=== PATIENT | female | born 1990 | race Caucasian/White ===

== ENCOUNTER 2019-08-10 10:58 | Emergency (ER) | payer MEDICAID ==
[2019-08-10 11:17] VITALS: BP 142/75; PULSE 95
[2019-08-10] MEDS ORDERED: diphenhydrAMINE 25 MG Cap PO ONE (11:31)
--- NOTE | 2019-08-10 11:37 | EDM.PDOC ---
ED HPI GENERAL MEDICAL PROBLEM - General Chief Complaint: Bite:Animal, Insect Stated Complaint: BUG BITE MAYBE A BEE??? Time Seen by Provider: 08/10/19 11:20 Source of Information: Reports: Patient, RN, RN Notes Reviewed History Limitations: Reports: No Limitations - History of Present Illness INITIAL COMMENTS - FREE TEXT/NARRATIVE: pt was stung by a wasp this morning on her right outer palm. Area is itchy and she was concerned that it was swelling; however, she states that the swelling has already gone down. She has no known allergies to stinging insects, she denies any difficulty breathing, shortness of breath, itchy throat, or edema in airway. 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: Psychiatric History: Reports: Depression - Past Surgical History HEENT Surgical History: Reports: Oral Surgery Female Surgical History: Reports: Section Social & Family History - Family History Cardiac: Reports: Hypertension - Tobacco Use Smoking Status *Q: Current Every Day Smoker Years of Tobacco use: 10 Packs/Tins Daily: 0.2 - Caffeine Use Caffeine Use: Reports: Coffee - Recreational Drug Use Recreational Drug Use: No ED ROS GENERAL - Review of Systems Review Of Systems: See Below Constitutional: Reports: No Symptoms HEENT: Reports: No Symptoms Respiratory: Reports: No Symptoms Cardiovascular: Reports: No Symptoms Endocrine: Reports: No Symptoms GI/Abdominal: Reports: No Symptoms Skin: Reports: Other (stung by wasp- itches) Neurological: Reports: No Symptoms Psychiatric: Reports: No Symptoms ED EXAM, ANIMAL BITE - Physical Exam Exam: See Below Exam Limited By: No Limitations General Appearance: Alert, WD/WN, No Apparent Distress Throat/Mouth: Normal Inspection, Normal Oropharynx, No Airway Compromise Head: Atraumatic, Normocephalic Respiratory/Chest: No Respiratory Distress, Lungs Clear, Normal Breath Sounds, Chest Non-Tender Cardiovascular: Regular Rate, Rhythm, No Murmur Peripheral Pulses: 2+: Radial (L), Radial (R) GI/Abdominal: Soft Extremities: Normal Capillary Refill Neurological: Alert, Oriented Skin Exam: Normal Color, Warm/Dry, Other (minor erythema to right palm- no edema noted. ) Course - Vital Signs Last Recorded V/S: Last Vital Signs Temp 97.7 F 08/10/19 11:20 Pulse 95 08/10/19 11:20 Resp 14 08/10/19 11:20 BP 142/75 H 08/10/19 11:20 Pulse Ox 94 L 08/10/19 11:20 - Orders/Labs/Meds Meds: Medications Discontinued Medications Generic Name Dose Route Start Last Admin Trade Name Malachi PRN Reason Stop Dose Admin Diphenhydramine HCl 25 mg 08/10/19 11:31 08/10/19 11:35 Benadryl PO 08/10/19 11:32 25 mg ONETIME ONE Administration Departure - Departure Time of Disposition: 11:37 Disposition: Home, Self-Care 01 Condition: Good Clinical Impression: Insect bite (nonvenomous) of right hand, initial encounter - Discharge Information *PRESCRIPTION DRUG MONITORING PROGRAM REVIEWED*: Not Applicable *COPY OF PRESCRIPTION DRUG MONITORING REPORT IN PATIENT CEDRIC: Not Applicable Instructions: Bee, Wasp, or Hornet Sting, Adult Referrals: PCP,None [Primary Care Provider] - Forms: ED Department Discharge Additional Instructions: This is a localized reaction to a stinging insect. You may take benadryl 25mg three times a day as needed for itching. Call or return to ED with any worsening of symptoms or other concerns, especially if shortness of breath, wheezing, itching of the tongue/ throat, hives, or airway compromise are present as this represents an anaphylactic reaction. Sepsis Event Note (ED) - Evaluation Sepsis Screening Result: No Definite Risk - Focused Exam Vital Signs: Vital Signs Temp Pulse Resp BP Pulse Ox 08/10/19 11:20 97.7 F 95 14 142/75 H 94 L 08/10/19 11:12 97.7 F 95 14 142/75 H 94 L
== END 2019-08-10 12:01 | disposition home or self-care (01) ==
LOC: JP.ED 10:58
DX: S60.561A Insect bite (nonvenomous) of right hand, initial encounter (principal); F32.9 Major depressive disorder, single episode, unspecified; F17.210 Nicotine dependence, cigarettes, uncomplicated; Z79.899 Other long term (current) drug therapy; W57.XXXA Bitten or stung by nonvenomous insect and other nonvenomous arthropods, initial encounter
CPT/HCPCS: 99282; A9270

== ENCOUNTER 2020-08-31 11:26 | Emergency (ER) | payer MEDICAID ==
[2020-08-31] MEDS ORDERED: Sodium Chloride 0.9% 1,000 ML IV SCH (14:15)
[2020-08-31] MEDS ORDERED: HYDROmorphone 0.5 MG/0.5 ML Syringe IVPUSH ONE (14:16)
[2020-08-31] MEDS ORDERED: Ondansetron 4 MG/2 ML SDV IVPUSH ONE (14:16)
--- NOTE | 2020-08-31 14:20 | EDM.PDOC ---
ED HPI GENERAL MEDICAL PROBLEM - General Chief Complaint: Abdominal Pain Stated Complaint: STOMACH PAIN Time Seen by Provider: 08/31/20 14:17 Source of Information: Reports: Patient History Limitations: Reports: No Limitations - History of Present Illness INITIAL COMMENTS - FREE TEXT/NARRATIVE: pt went out to eat lasdt nite and after that she developed severe cramping and was not able to rest during the nite. She has not vomited. She describes her pain as oriented more to the rt side. Onset: Other ( started last nite. ) Duration: Hour(s): Location: Reports: Abdomen Associated Symptoms: Reports: Other (pt has been nauseated but has not vomited. ) Abdomen Pain Score (Numeric/FACES): 10 - Related Data Allergies Allergy/AdvReac Type Severity Reaction Status Date / Time No Known Allergies Allergy Verified 08/31/20 13:02 Home Meds: Home Meds Citalopram [Citalopram HBr] 40 mg PO DAILY 08/10/19 [History] Past Medical History - Past Health History Medical/Surgical History: Denies Medical/Surgical History [employer] [facility] History: Reports: Psychiatric History: Reports: Depression - Past Surgical History HEENT Surgical History: Reports: Oral Surgery Other HEENT Surgeries/Procedures: Dental cap to tooth at site of pain. Female Surgical History: Reports: Section Social & Family History - Family History Cardiac: Reports: Hypertension - Tobacco Use Tobacco Use Status *Q: Current Every Day Tobacco User Years of Tobacco use: 14 Packs/Tins Daily: 0.5 Used Tobacco, but Quit: No - Caffeine Use Caffeine Use: Reports: Coffee, Soda - Recreational Drug Use Recreational Drug Use: No ED ROS GENERAL - Review of Systems Review Of Systems: See Below Constitutional: Reports: Weakness, Decreased Appetite HEENT: Reports: No Symptoms Respiratory: Reports: No Symptoms Cardiovascular: Reports: No Symptoms Endocrine: Reports: No Symptoms GI/Abdominal: Reports: Abdominal Pain, Other (pain is more oriented to the rt side. ) : Reports: No Symptoms Musculoskeletal: Reports: No Symptoms Skin: Reports: No Symptoms ED EXAM, GI/ABD - Physical Exam Exam: See Below Text/Narrative:: pt arrived with severe lower abdomanal cramping which started last nite. She has not had diarrhea and she has not vomited. She does not have definite burning on urination. Exam Limited By: No Limitations General Appearance: Alert, Anxious, Moderate Distress, Other (pupils are equal and resctive. ) Ears: Normal TMs Nose: Normal Inspection Throat/Mouth: Normal Inspection, Other (mouth is very dry. ) Head: Atraumatic Neck: Normal Inspection Respiratory/Chest: No Respiratory Distress Cardiovascular: Regular Rate, Rhythm GI/Abdominal Exam: Other ( tender in the rt upper abdoman and rt mid abdoman. ) (Female) Exam: Deferred Rectal (Female) Exam: Deferred Back Exam: Normal Inspection Extremities: Normal Inspection Neurological: Alert, CN II-XII Intact, Inattentive Course - Vital Signs Last Recorded V/S: Last Vital Signs Temp 36.6 C 08/31/20 13:08 Pulse 113 H 08/31/20 17:32 Resp 16 08/31/20 17:32 BP 115/60 08/31/20 17:32 Pulse Ox 96 08/31/20 17:32 - Orders/Labs/Meds Labs: Laboratory Tests 08/31/20 08/31/20 08/31/20 Range/Units 14:14 14:14 14:14 WBC 19.1 H (4.5-11.0) K/uL RBC 4.90 (3.30-5.50) M/uL Hgb 15.4 H D (12.0-15.0) g/dL Hct 46.0 (36.0-48.0) % MCV 94 (80-98) fL MCH 31 (27-31) pg MCHC 34 (32-36) % Plt Count 282 (150-400) K/uL Neut % (Auto) 90.6 H (36-66) % Lymph % (Auto) 5.2 L (24-44) % Delta % (Auto) 4.0 (2-6) % Eos % (Auto) 0.1 L (2-4) % Baso % (Auto) 0.1 (0-1) % Sodium 139 L (140-148) mmol/L Potassium 4.1 (3.6-5.2) mmol/L Chloride 102 (100-108) mmol/L Carbon Dioxide 26 (21-32) mmol/L Anion Gap 15.1 H (5.0-14.0) mmol/L BUN 8 D (7-18) mg/dL Creatinine 1.0 D (0.6-1.0) mg/dL Est Cr Clr Drug Dosing 63.20 mL/min Estimated GFR (MDRD) > 60 (>60) Glucose 103 (74-106) mg/dL Calcium 8.9 (8.5-10.1) mg/dL Total Bilirubin 0.5 D (0.2-1.0) mg/dL AST 14 L (15-37) U/L ALT 15 (12-78) U/L Alkaline Phosphatase 74 (46-116) U/L C-Reactive Protein 10.22 H (0.0-0.3) mg/dL Total Protein 8.0 (6.4-8.2) g/dL Albumin 3.4 (3.4-5.0) g/dL Globulin 4.6 H (2.3-3.5) g/dL Albumin/Globulin Ratio 0.7 L (1.2-2.2) Urine Color (YELLOW) Urine Appearance (CLEAR) Urine pH (5.0-8.0) Ur Specific Scio (1.008-1.030) Urine Protein (NEGATIVE) mg/dL Urine Glucose (UA) (NEGATIVE) mg/dL Urine Ketones (NEGATIVE) mg/dL Urine Occult Blood (NEGATIVE) Urine Nitrite (NEGATIVE) Urine Bilirubin (NEGATIVE) Urine Urobilinogen (0.2-1.0) EU/dL Ur Leukocyte Esterase (NEGATIVE) Urine RBC (0-5) Urine WBC (0-5) Ur Epithelial Cells Amorphous Sediment Urine Bacteria Urine Mucus Urine HCG, Qual 08/31/20 08/31/20 Range/Units 14:22 14:22 WBC (4.5-11.0) K/uL RBC (3.30-5.50) M/uL Hgb (12.0-15.0) g/dL Hct (36.0-48.0) % MCV (80-98) fL MCH (27-31) pg MCHC (32-36) % Plt Count (150-400) K/uL Neut % (Auto) (36-66) % Lymph % (Auto) (24-44) % Delta % (Auto) (2-6) % Eos % (Auto) (2-4) % Baso % (Auto) (0-1) % Sodium (140-148) mmol/L Potassium (3.6-5.2) mmol/L Chloride (100-108) mmol/L Carbon Dioxide (21-32) mmol/L Anion Gap (5.0-14.0) mmol/L BUN (7-18) mg/dL Creatinine (0.6-1.0) mg/dL Est Cr Clr Drug Dosing mL/min Estimated GFR (MDRD) (>60) Glucose (74-106) mg/dL Calcium (8.5-10.1) mg/dL Total Bilirubin (0.2-1.0) mg/dL AST (15-37) U/L ALT (12-78) U/L Alkaline Phosphatase (46-116) U/L C-Reactive Protein (0.0-0.3) mg/dL Total Protein (6.4-8.2) g/dL Albumin (3.4-5.0) g/dL Globulin (2.3-3.5) g/dL Albumin/Globulin Ratio (1.2-2.2) Urine Color Yellow (YELLOW) Urine Appearance Cloudy A (CLEAR) Urine pH 5.5 (5.0-8.0) Ur Specific Scio 1.025 (1.008-1.030) Urine Protein 30 H (NEGATIVE) mg/dL Urine Glucose (UA) Negative (NEGATIVE) mg/dL Urine Ketones Negative (NEGATIVE) mg/dL Urine Occult Blood Moderate H (NEGATIVE) Urine Nitrite Negative (NEGATIVE) Urine Bilirubin Small H (NEGATIVE) Urine Urobilinogen 0.2 (0.2-1.0) EU/dL Ur Leukocyte Esterase Small H (NEGATIVE) Urine RBC 10-20 H (0-5) Urine WBC 20-30 H (0-5) Ur Epithelial Cells Many Amorphous Sediment Few Urine Bacteria Few Urine Mucus Packed Urine HCG, Qual Negative Meds: Medications Discontinued Medications Generic Name Dose Route Start Last Admin Trade Name Freq PRN Reason Stop Dose Admin Hydromorphone HCl 0.5 mg 08/31/20 14:16 08/31/20 14:34 Hydromorphone 0.5 Mg/0.5 Ml Syringe IVPUSH 08/31/20 14:17 0.5 mg ONETIME ONE Administration Sodium Chloride 1,000 mls @ 999 mls/hr 08/31/20 14:15 08/31/20 14:33 Normal Saline IV 999 mls/hr ASDIRECTED BRII Administration Sodium Chloride 70 mls @ 3 mls/sec 08/31/20 15:14 08/31/20 15:22 Normal Saline IV 08/31/20 15:15 3 mls/sec ASDIRECTED ONE Administration Ceftriaxone Sodium 1 gm/ 50 mls @ 100 mls/hr 08/31/20 15:53 08/31/20 16:47 Sodium Chloride IV 08/31/20 16:22 100 mls/hr ONETIME ONE Administration Iopamidol 100 ml 08/31/20 15:15 08/31/20 15:22 Iopamidol 612 Mg/Ml 100 Ml Bottle IV 100 ml . DIRECTED BRII Administration Ondansetron HCl 4 mg 08/31/20 14:16 08/31/20 14:34 Ondansetron 4 Mg/2 Ml Sdv IVPUSH 08/31/20 14:17 4 mg ONETIME ONE Administration - Re-Assessments/Exams Free Text/Narrative Re-Assessment/Exam: 08/31/20 17:02 pt has a neg preg test. She has a US which did not show definite cysts althouh the cat scan show probable rt sided ovarian cysts. Her urine appears very infected and the wbc is elevated. 08/31/20 17:03 pt has been given 2 liters of fluid She has been given a gram of rocephen. Departure - Departure Time of Disposition: 17:57 Disposition: Home, Self-Care 01 Condition: Fair Clinical Impression: UTI (urinary tract infection), Complex cyst of right ovary - Discharge Information Instructions: Urinary Tract Infection, Adult, [id number], Ovarian Cyst, [id number] Referrals: Jeimy Castro CNM [Primary Care Provider] - Forms: ED Department Discharge Care Plan Goals: appt with modesta Castro in Friday. . cipro 500mg bid for 10 days, norco 5/325 q6h prn for pain. be aware of the constiopation connected to narco. no beds were avaiable. She was given the possibly of being transfered to another hosp. She coose not to do that. Sepsis Event Note (ED) - Evaluation Sepsis Screening Result: No Definite Risk
[2020-08-31] MEDS ORDERED: Iopamidol 612 MG/ML 100 ML Bottle IV SCH (15:15)
--- NOTE | 2020-08-31 15:42 | CT ---
Abdomen Pelvis w Cont CLINICAL HISTORY: Abdominal pain COMPARISON: None. TECHNIQUE: Transverse scans were obtained from the base of the lungs to the pubic symphysis following oral contrast and IV infusion of contrast.Auto dosage reduction and iterative reconstructiontechniques employed. FINDINGS: The lung bases are clear. The liver shows no mass or biliary dilatation. The gallbladder has a normal contour. The spleen has normal size and shape. The pancreas shows no mass or inflammatory change. The adrenal glands appear normal bilaterally . The kidneys show no mass, stones or hydronephrosis. The ureters have a normal course and caliber. The bladder has normal contour. The uterus is mildly heterogeneous. There is a 2.6 x 1.7 x 3.2 cm complex fluid density in the right adnexal region which is likely multiple cysts.. The aorta has a normal contour. There is no suspicious retroperitoneal adenopathy. The small intestinal configuration is nonacute. There is moderate liquid stool in the right colon. The appendix has a normal contour. Abdominal pelvic fat planes and low pelvic side are well demarcated IMPRESSION: Complex fluid density focus in right adnexa likely represents multiple follicular type cysts No mass or inflammatory changes identified Moderate liquid stool right colon in a nonacute configuration
[2020-08-31] MEDS ORDERED: cefTRIAXone 1 GM in Sodium Chloride 0.9% 50 ML IV ONE (15:53)
--- NOTE | 2020-08-31 17:18 | CRLUS ---
For Patients: As a result of the Century Cures Act, medical imaging exams and procedure reports are released immediately into your electronic medical record. You may view this report before your referring provider. If you have questions, please contact your health care provider. INDICATION: Lower abdominal pain. TECHNIQUE: Ultrasound pelvis transabdominal and transvaginal for better assessment or to better visualize the endometrium. Real-time sonographic images with spectral and color Doppler imaging of the ovaries were obtained. COMPARISON: None FINDINGS: Uterus: 8 x 5 x 4 cm. Normal echotexture of the myometrium. No masses. Endometrium: Transvaginal imaging was performed to better evaluate the endometrium. Endometrial thickness measures 2 mm. No sign of endometrial mass or fluid. Right ovary measures 3 x 3 x 2 cm and left ovary measures 2 x 2 x 1 cm. No ovarian or adnexal masses. Normal arterial and venous blood flow is demonstrated in both ovaries. Cul-de-sac: No significant free fluid. IMPRESSION: Normal pelvic ultrasound. Dictated by Wolf Herrera MD @ 08/31/2020 5:16:41 PM Dictated by: Wolf Herrera MD @ 08/31/2020 17:16:45 (Electronically Signed)
[2020-08-31 17:33] VITALS: BP 115/60; PULSE 113
--- NOTE | 2020-09-04 07:36 | CRLUS ---
Final Report: INDICATION: Lower abdominal pain. TECHNIQUE: Ultrasound pelvis transabdominal and transvaginal for better assessment or to better visualize the endometrium. Real-time sonographic images with spectral and color Doppler imaging of the ovaries were obtained. COMPARISON: None FINDINGS: Uterus: 8 x 5 x 4 cm. Normal echotexture of the myometrium. No masses. Endometrium: Transvaginal imaging was performed to better evaluate the endometrium. Endometrial thickness measures 2 mm. No sign of endometrial mass or fluid. Right ovary measures 3 x 3 x 2 cm and left ovary measures 2 x 2 x 1 cm. No ovarian or adnexal masses. Normal arterial and venous blood flow is demonstrated in both ovaries. Cul-de-sac: No significant free fluid. IMPRESSION: Normal pelvic ultrasound. Dictated by Wolf Herrera MD @ 08/31/2020 5:16:41 PM Dictated by: Wolf Herrera MD @ 08/31/2020 17:16:45 Signed by: Wolf Herrera MD @08/31/2020 5:16:45 PM (Electronic Signature) MTDD
== END 2020-08-31 18:12 | disposition home or self-care (01) ==
LOC: JP.ED 11:26
DX: N39.0 Urinary tract infection, site not specified (principal); N83.201 Unspecified ovarian cyst, right side; Z72.0 Tobacco use
CPT/HCPCS: 36415; 74177; 76830; 76857; 80053; 81001; 81025; 85025; 86140; 87086; 96365; 96375; 99284; J0696; J1170; J2405; J7030; Q9967

== ENCOUNTER 2020-12-10 12:11 | Emergency (ER) | payer MEDICAID ==
[2020-12-10 13:18] VITALS: BP 118/80; PULSE 94
--- NOTE | 2020-12-10 13:33 | EDM.PDOC ---
ED HPI GENERAL MEDICAL PROBLEM - General Chief Complaint: ENT Problem Stated Complaint: SWOLLEN LYMPH NODES,EAR PAIN Time Seen by Provider: 12/10/20 13:27 Source of Information: Reports: Patient, Old Records, RN Notes Reviewed History Limitations: Reports: No Limitations - History of Present Illness INITIAL COMMENTS - FREE TEXT/NARRATIVE: "30-year-old female presents emergency department day plaint sinus congestion sore throat lymph nodes in her neck she has not had any fevers [facility] she has had a Covid test which was negative rapid strep negative culture negative she has been ill for about 10 days and no improvement. Throat Pain Score (Numeric/FACES): 6 - Related Data Allergies Allergy/AdvReac Type Severity Reaction Status Date / Time No Known Allergies Allergy Verified 12/10/20 13:14 Home Meds: Home Meds Citalopram [Citalopram HBr] 40 mg PO DAILY 08/10/19 [History] Past Medical History [employer] History: Reports: Psychiatric History: Reports: Depression - Past Surgical History HEENT Surgical History: Reports: Oral Surgery Other HEENT Surgeries/Procedures: Dental cap to tooth at site of pain. Female Surgical History: Reports: Section Social & Family History - Family History Cardiac: Reports: Hypertension - Tobacco Use Tobacco Use Status *Q: Heavy Tobacco User Years of Tobacco use: 13 Packs/Tins Daily: 0.5 - Caffeine Use Caffeine Use: Reports: Coffee, Soda - Recreational Drug Use Recreational Drug Use: No ED ROS ENT - Review of Systems Review Of Systems: See Below Constitutional: Denies: Fever HEENT: Reports: Sinus Problem, Throat Pain, Throat Swelling Respiratory: Reports: No Symptoms Cardiovascular: Reports: No Symptoms ED EXAM, ENT - Physical Exam Exam: See Below Exam Limited By: No Limitations General Appearance: Alert, WD/WN, No Apparent Distress Mouth/Throat: Normal Inspection (Depressed), Normal Gums, Normal Lips, Normal Teeth, Pharyngeal Erythema Neck: Normal Inspection, Supple, Non-Tender, Full Range of Motion Respiratory/Chest: No Respiratory Distress, Lungs Clear, Normal Breath Sounds, No Accessory Muscle Use, Chest Non-Tender Cardiovascular: Regular Rate, Rhythm, No Murmur Course - Vital Signs Last Recorded V/S: Last Vital Signs Temp 97.4 F 12/10/20 13:13 Pulse 94 10/17/21 13:13 Resp 16 12/10/20 13:13 BP 118/80 12/10/20 13:13 Pulse Ox 98 12/10/20 13:13 Departure - Departure Time of Disposition: 13:33 Disposition: Home, Self-Care 01 Condition: Fair Clinical Impression: Pharyngitis Qualifiers: Pharyngitis/tonsillitis etiology: other specified organisms Qualified Code(s): J02.8 - Acute pharyngitis due to other specified organisms - Discharge Information Instructions: Pharyngitis Referrals: Jeimy Castro CNM [Primary Care Provider] - Additional Instructions: Take full course of antibiotics, please followup with your primary care provider in 3-5 days if not better, please call return to the emergency department with worsening of symptoms. Sepsis Event Note (ED) - Evaluation Sepsis Screening Result: No Definite Risk - Focused Exam Vital Signs: Vital Signs Temp Pulse Resp BP Pulse Ox 12/10/20 13:13 97.4 F 94 16 118/80 98 12/10/20 13:12 97.4 F 94 16 118/80 98 - Assessment/Plan Plan: Assessment Acuity = acute Site and laterality = pharyngitis Etiology = unknown Manifestations = none Location of injury = Home Lab values = none Plan Because she has been ill for over a week multiple viral tests have been negative think she is worse trial of antibiotics after prescription written for azithromycin follow-up primary care 3 to 5 days if not better This note was dictated using [employer] voice recognition software please call with any questions on syntax or grammar.
== END 2020-12-10 13:40 | disposition home or self-care (01) ==
LOC: JP.ED 12:11
DX: J02.8 Acute pharyngitis due to other specified organisms (principal); Z72.0 Tobacco use
CPT/HCPCS: 99283

== ENCOUNTER 2022-01-21 19:53 | Emergency (ER) | payer MEDICAID ==
[2022-01-21] MEDS ORDERED: Albuterol/Ipratropium 3.0-0.5 MG/3 ML Neb Soln NEB ONE (20:12)
[2022-01-21 20:40] VITALS: PULSE 110
[2022-01-21 20:40] LABS: ESTIMATED GFR 89 mL/min (>60)
[2022-01-21 20:52] LABS: CORONAVIRUS COVID-19 NAA POSITIVE (NEGATIVE)
[2022-01-21] MEDS ORDERED: Dexamethasone 4 MG/ML SDV IVPUSH ONE (20:58)
[2022-01-21 21:09] VITALS: BP 118/73
== END 2022-01-21 21:08 | disposition home or self-care (01) ==
LOC: JP.ED 19:53
DX: U07.1 COVID-19 (principal); J10.1 Influenza due to other identified influenza virus with other respiratory manifestations
CPT/HCPCS: 0241U; 36415; 71046; 80053; 85025; 86140; 87081; 87880; 94640; 96374; 99285; J1100; J7620

== ENCOUNTER 2023-04-17 09:26 | Emergency (ER) | payer MEDICAID ==
[2023-04-17 09:34] VITALS: BP 131/85; PULSE 88
[2023-04-17 09:40] LABS: APPEARANCE,URINE SLIGHTLY CLOUDY (CLEAR); BILIRUBIN,URINE NEGATIVE (NEGATIVE); COLOR,URINE YELLOW (YELLOW); GLUCOSE,URINE NEGATIVE (NEGATIVE); KETONES,URINE NEGATIVE (NEGATIVE); LEUKOCYTE ESTERASE,URINE NEGATIVE (NEGATIVE); NITRITE,URINE NEGATIVE (NEGATIVE); OCCULT BLOOD,URINE MODERATE (NEGATIVE); PH,URINE 5.5 (5.0-8.0); PROTEIN,URINE TRACE mg/dL (NEGATIVE); UROBILINOGEN,URINE 0.2 EU/dL (0.2-1.0)
[2023-04-17] MEDS ORDERED: Naloxone 0.4 MG/ML SDV IVPUSH PRN (09:40)
[2023-04-17 09:45] LABS: AMORPHOUS SEDIMENT,URINE NOT SEEN; BACTERIA,URINE MANY; EPITHELIAL CELLS,URINE FEW; MUCUS,URINE NOT SEEN; RBC,URINE 20-30 (0-5)
[2023-04-17 09:58] LABS: BASOPHILS PERCENT AUTO 0.2 % (0.1-1.3); EOSINOPHILS ABSOLUTE AUTO 0.29 K/uL (0.00-0.40); EOSINOPHILS PERCENT AUTO 2.9 % (0.0-5.4); HEMOGLOBIN 14.8 g/dL (11.2-15.5); IMMATURE GRAN PERCENT AUTO 0.2 % (0.0-0.7); LYMPHOCYTES ABSOLUTE AUTO 2.82 K/uL (0.8-3.3); LYMPHOCYTES PERCENT AUTO 28.5 % (11.4-47.7); MEAN CORPUSCULAR HEMOGLOBIN 31.7 pg (31.6-35.5); MEAN CORPUSCULAR HGB CONC 34.4 g/dL (31.6-35.5); MEAN CORPUSCULAR VOLUME 92.1 fL (81.4-99.0); MONOCYTES ABSOLUTE AUTO 0.83 K/uL (0.20-0.90); MONOCYTES PERCENT AUTO 8.4 % (3.3-12.6); NEUTROPHILS PERCENT AUTO 59.8 % (40.0-78.1); PLATELET COUNT,PLT 277 K/uL (130-375); RED BLOOD CELL COUNT 4.67 M/uL (3.77-5.24); WHITE BLOOD CELL COUNT,WBC 9.9 K/uL (3.2-11.0)
[2023-04-17] MEDS ORDERED: Sodium Chloride 0.9% 100 ML IV SCH (10:00)
[2023-04-17] MEDS: Ondansetron 4 MG/2 ML SDV IVPUSH ONE (10:02)
[2023-04-17] MEDS: Sodium Chloride 0.9% 1,000 ML IV ONE (10:02)
[2023-04-17] MEDS: HYDROmorphone 0.5 MG/0.5 ML Syringe IVPUSH ONE (10:02)
[2023-04-17 10:03] LABS: BASOPHILS ABSOLUTE AUTO 0.02 K/uL (0.00-0.10); IMMATURE GRAN ABSOLUTE AUTO 0.02 K/uL (0.00-0.23)
[2023-04-17] MEDS: Ketorolac 30 MG/ML SDV IVPUSH ONE (10:05)
[2023-04-17 10:15] LABS: ANION GAP 12.1 mmol/L (5.0-14.0); C-REACTIVE PROTEIN 1.2 mg/dL (<0.50); CALCIUM 9.3 mg/dL (8.5-10.1); CREATININE 0.8 mg/dL (0.6-1.0); EST CRCL DRUG DOSING (CG) 77.59 mL/min; POTASSIUM,K 3.8 mmol/L (3.6-5.2)
[2023-04-17] MEDS: Sodium Chloride 0.9% 10 ML Syringe FLUSH PRN (10:41)
[2023-04-17] MEDS: Iopamidol 612 MG/ML 100 ML Bottle IV PRN (10:41)
== END 2023-04-17 11:33 | disposition home or self-care (01) ==
LOC: JP.ED 09:26
DX: N13.2 Hydronephrosis with renal and ureteral calculous obstruction (principal); F17.210 Nicotine dependence, cigarettes, uncomplicated; Z79.899 Other long term (current) drug therapy
CPT/HCPCS: 36415; 74177; 80048; 81001; 81025; 85025; 86140; 96361; 96374; 96375; 99284; J1170; J1885; J2405; J3490; J7030; Q9967